=== PATIENT | female | born 1930 | race Caucasian/White ===

== ENCOUNTER 2016-06-29 03:43 | Emergency (ER) | payer MEDICARE ==
--- NOTE | 2016-06-29 03:54 | Emergency Department Record ---
History of Present Illness - General Stated complaint: FALL Time Seen by Provider: 06/29/16 03:48 Source: EMS Mode of Arrival: Stretcher Limitations: Altered mental status (dementia) Travel/Exposure to [place] Within 21 Days of Symptoms: No - History of Present Illness Initial comments: 85 yo female presents to ED following a reported fall per EMS. Patient has a history of severe dementia, does not remember any fall or injury. History is limited by patient's dementia. MD Complaint: Head injury Onset/Timin -: Hour(s) Arrival Conditions: Other (patient refused cervical collar) Mechanism of Injury: Mechanical fall Loss of Consciousness: Yes Previous Trauma to this Area: Yes Place: Home Radiation: None Other Injuries: None - Related Data Previous Rx's Medication Instructions Recorded Na Phos,M-B/Na Phos,Di-Ba [Fleet 266 ml RC Q8H PRN #3 enema 06/29/16 Enema] Polyethylene Glycol 3350 [Miralax] 1 packet PO DAILY #30 packet 06/29/16 Review of Systems ROS unobtainable: Due to mental status Physical Exam - General General Appearance: Alert, Cooperative, No acute distress, Other (patient reports that she does not remember a fall this morning, denies injury or pain) Limitations: Altered mental status - Head Head exam: Atraumatic, Normocephalic, Normal inspection Head exam detail: negative: Abrasion, Contusion, Skelton's sign, General tenderness, Hematoma, Laceration - Eye Eye exam: Normal appearance. negative: Conjunctival injection, Periorbital swelling, Periorbital tenderness, Scleral icterus - ENT Ear exam: negative: Auricular hematoma, Auricular trauma Nasal Exam: negative: Active bleeding, Discharge, Dried blood, Foreign body Mouth exam: negative: Drooling, Laceration, Muffled voice, Tongue elevation - Neck Neck exam: Normal inspection. negative: Meningismus, Tenderness - Respiratory Respiratory exam: Normal lung sounds bilaterally. negative: Rhonchi, Stridor, Wheezes - Cardiovascular Cardiovascular Exam: Regular rate, Normal rhythm, Normal heart sounds - GI/Abdominal GI/Abdominal exam: Soft. negative: Organomegaly, Pulsatile mass, Rebound, Rigid - Rectal Rectal exam: Deferred - exam: Deferred - Extremities Extremities exam: Normal inspection. negative: Calf tenderness, Pedal edema, Tenderness - Back Back exam: Denies: CVA tenderness (R), CVA tenderness (L) - Neurological Neurological exam: Alert, Normal gait, Oriented X3 - Psychiatric Psychiatric exam: Normal affect, Normal mood - Skin Skin exam: Normal color. negative: Abrasion Type of lesion: negative: abrasion Course - Reevaluation(s) Reevaluation #1: 06/29/16 04:27 CT Brain: Atrophy, small vessel ischemic change, nothing acute. Patient and her daughter were updated on CT imaging results, patient reports that she is feeling nauseated. Zofran ordered, will continue to monitor. Reevaluation #2: 06/29/16 05:39 Patient attempted to have BM while in the ED, resulted in vaso-vagal response. Daughter at the bedside reports simialr symptoms previously when attempting to have a BM. Patient is currently sleeping, BP now back to 118/50, pulse 50's. Will discharge home with Fleet's enema and Miralax for her constipation symptoms. Patient appears stable for discharge home with her daughter at this time. Disposition Disposition: Discharge Clinical Impression: Fall from standing Qualifiers: Encounter type: initial encounter Qualified Code(s): W19.XXXA - Unspecified fall, initial encounter Disposition: Home, Self-Care Condition: (2) Stable Instructions: Minor Head Injury (ED) Additional Instructions: Return to ED if your symptoms worsen or if you have any concerns. Fleet's enema and Miralax as directed. Follow-up with your family doctor in 3-5 days as directed. Prescriptions: Na Phos,M-B/Na Phos,Di-Ba [Fleet Enema] 266 ml RC Q8H PRN #3 enema PRN Reason: Constipation Polyethylene Glycol 3350 [Miralax] 1 packet PO DAILY #30 packet Time of Disposition: 05:41
[2016-06-29] MEDS ORDERED: ONDANSETRON 4 MG ODT TABLET SL ONE (04:23)
== END 2016-06-29 06:01 | disposition home or self-care (01) ==
LOC: ER 03:43
DX: G89.11 Acute pain due to trauma (principal); R51 Headache; R11.0 Nausea; R55 Syncope and collapse; K59.00 Constipation, unspecified; F03.90 Unspecified dementia, unspecified severity, without behavioral disturbance, psychotic disturbance, mood disturbance, and anxiety; I48.91 Unspecified atrial fibrillation; W06.XXXA Fall from bed, initial encounter; Y92.122 Bedroom in nursing home as the place of occurrence of the external cause
CPT/HCPCS: 70450; 99283; 99284

== ENCOUNTER 2016-06-30 07:37 | Emergency (ER) | payer MEDICARE ==
[2016-06-30] MEDS ORDERED: 0.9 % SODIUM CHLORIDE 1,000 ML BAG IV ONE (07:58)
[2016-06-30] MEDS ORDERED: ONDANSETRON HCL IV 4 MG/2 ML VIAL IV ONE (07:58)
--- NOTE | 2016-06-30 08:01 | Emergency Department Record ---
History of Present Illness - General Chief Complaint: Abdominal Pain Stated Complaint: ABD PAIN Time Seen by Provider: 06/30/16 07:51 Source: Family Mode of Arrival: EMS Limitations: No limitations - History of Present Illness Initial Comments: The patient is here due to having abdominal pain this AM. She lives at [facility] and according to the patient's daughter she was called at 7am due to the patient being constipated and having AP. She did have some vomiting prior to presenting to the ER. The patient has a hx of significant dementia so the hx is obtained from her daughter. She was in the ER yesterday in the features reporter hours due to falling and bumping her head. She did have a neg head CT then. The patient is not on any blood thinners and presently is acting normally per her daughter. There has been no reported fever, diarrhea, dysuria, back pain or new confusion. She has had her gallbladder out in the past and that is her only abdominal surgery. The patient did have a BM yesterday. MD Complaint: Abdominal pain Onset/Timin -: Days(s) Radiation: None Migration to: No migration Improves With: Nothing Worsens With: Nothing Associated Symptoms: Denies other symptoms - Related Data Patient : No Home Medications Medication Instructions Recorded Confirmed Last Taken Digoxin [Digox] 125 mcg PO DAILY 06/30/16 06/30/16 Unknown Lorazepam [Lorazepam] 0.5 mg PO QID 06/30/16 06/30/16 Unknown Memantine HCl [Namenda Xr] 28 mg PO DAILY 06/30/16 06/30/16 Unknown Metoprolol Tartrate [Metoprolol 25 mg PO DAILY 06/30/16 06/30/16 Unknown Tartrate] Naftifine HCl [Naftin] 45 gm TOP DAILY 06/30/16 06/30/16 Unknown Rivastigmine [Exelon] 1 patch TOP DAILY 06/30/16 06/30/16 Unknown Tramadol HCl [Tramadol HCl] 25 mg PO TID 06/30/16 06/30/16 Unknown Previous Rx's Medication Instructions Recorded Polyethylene Glycol 3350 [Miralax] 1 packet PO DAILY #30 packet 06/29/16 Allergies Allergy/AdvReac Type Severity Reaction Status Date / Time No Known Drug Allergies Allergy Verified 06/30/16 07:51 Travel Screening - Travel/Exposure Within Last 30 Days Have you traveled within the last 30 days?: No Review of Systems Constitutional: Denies: Chills, Fever, Malaise ENT: Denies: Congestion Respiratory: Denies: Cough, Dyspnea Cardiovascular: Denies: Arrhythmia, Chest pain Endocrine: Reports: Fatigue Gastrointestinal: Reports: Abdominal pain, Nausea, Vomiting Genitourinary: Denies: Dysuria Musculoskeletal: Denies: Back pain Skin: Denies: Bruising Past Medical History - SOCIAL HISTORY Smoking Status: Never smoker - RESPIRATORY Hx Respiratory Disorders: No - CARDIOVASCULAR Hx Cardio Disorders: Yes Hx Irregular Heartbeat: Yes (afib) - NEURO Hx Neuro Disorders: Yes Hx Dementia: Yes - GI Hx GI Disorders: No - Hx Genitourinary Disorders: No - ENDOCRINE Hx Endocrine Disorders: No - MUSCULOSKELETAL Hx Musculoskeletal Disorders: No - PSYCH Hx Psych Problems: No - HEMATOLOGY/ONCOLOGY Hx Hematology/Oncology Disorders: No Family Medical History Any Significant Family History?: No Physical Exam - General General Appearance: Alert, Cooperative, No acute distress - Head Head exam: Atraumatic, Normocephalic, Normal inspection - Eye Eye exam: Normal appearance, PERRL - Neck Neck exam: Normal inspection, Full ROM. negative: Tenderness - Respiratory Respiratory exam: Normal lung sounds bilaterally. negative: Respiratory distress - Cardiovascular Cardiovascular Exam: Irregular rhythm. negative: Regular rate, Normal rhythm - GI/Abdominal GI/Abdominal exam: Soft, Normal bowel sounds. negative: Guarding, Rebound, Rigid, Tenderness - Extremities Extremities exam: Normal inspection, Full ROM, Normal capillary refill. negative: Tenderness - Neurological Neurological exam: Alert. negative: Motor sensory deficit, Oriented X3 - Psychiatric Psychiatric exam: negative: Agitated - Skin Skin exam: negative: Rash Course Vital Signs 06/30/16 07:43 Temperature 97.3 F L Pulse Rate 79 Respiratory 20 Rate Blood Pressure 130/65 Pulse Ox 98 - Reevaluation(s) Reevaluation #1: The patient is doing well. She did drink the CT contrast with no difficulty or problems. Presently there is no reported AP, nausea, or vomiting and on exam her abdomen is very soft and nontender. I did discuss the lab and CT results with the patient's daughter and did discuss the need to return for any worsening symptoms. 06/30/16 11:27 Medical Decision Making - Data Complexity MDM Data: Labs Ordered and/or Reviewed, X-Ray Ordered and/or Reviewed, EKG Ordered and/or Reviewed (Afib in the 80's. LAD. No ischemic changes.) - Lab Data Result diagrams: 06/30/16 08:10 06/30/16 08:10 - Radiology Data Radiology results: Report reviewed (Abd CT: No acute changes, R colon possibly with wall thickening but most likely due to incomplete distension.) Disposition Disposition: Discharge Clinical Impression: Abdominal pain in female Disposition: Home, Self-Care Condition: (1) Good Instructions: Abdominal Pain (ED) Additional Instructions: Please continue your regular medicines. [facility] later this week for recheck. Please continue the Miralax daily as directed. Return to the ER for any increased pain, fever, or vomiting. Forms: Patient Portal Access Time of Disposition: 11:26
[2016-06-30 08:34] LABS: BASO % 0.5 % (0-6); EOS % 0.8 % (0-6); GRAN % 72.6 % (47-80); HEMATOCRIT 41.7 % (35.0-47.0); HEMOGLOBIN 13.5 gm/dl (11.6-16.0); LYMPH % 19.7 % (16-45); MEAN CELL VOLUME 96.3 fl (81-97); MEAN CORPUSCULAR HEMOGLOBIN 31.2 pg (27-33); MEAN CORPUSCULAR HGB CONC 32.4 g/dl (32-36); MEAN PLATELET VOLUME 11.4 fl (7.4-10.4); MONO % 6.4 % (0-9); PLATELET COUNT 189 K/uL (130-400); RED BLOOD COUNT 4.33 M/uL (3.80-5.40); RED CELL DISTRIBUTION WIDTH 13.5 % (11.5-14.5); WHITE BLOOD COUNT W/O DIFF 5.9 K/uL (4.2-12.2)
[2016-06-30 08:54] LABS: CREATINE PHOSPHOKINASE 51 U/L (30-135)
[2016-06-30 08:55] LABS: ALBUMIN 4.2 gm/dL (3.5-5.0); ALKALINE PHOSPHATASE 64 U/L (38-126); ALT/SGPT 36 U/L (9-52); ANION GAP 9.7 (7-16); AST/SGOT 40 U/L (14-36); BLOOD UREA NITROGEN 10 mg/dL (7-17); CARBON DIOXIDE 27.3 mmol/L (22-30); CREATININE 0.9 mg/dL (0.52-1.04); EST GLOMERULAR FILTRATION RATE > 60 ml/min; GLUCOSE,RANDOM 127 mg/dL (70-110); TOTAL PROTEIN 7.5 gm/dL (6.3-8.2)
[2016-06-30 09:06] LABS: URINE APPEARANCE CLEAR; URINE BILIRUBIN NEGATIVE (NEGATIVE); URINE BLOOD TRACE-I (NEGATIVE); URINE COLOR YELLOW; URINE GLUCOSE (UA) NEGATIVE (NEGATIVE); URINE KETONE NEGATIVE (NEGATIVE); URINE LEUKOCYTE ESTERASE NEGATIVE (NEGATIVE); URINE NITRITE NEGATIVE (NEGATIVE); URINE UROBILINOGEN 0.2 E.U./dL (0.20 - 1.00)
[2016-06-30 09:07] LABS: CKMB 0.5 ug/L (0-6)
[2016-06-30 09:08] LABS: TROPONIN I < 0.012 ng/mL (0.00-0.034)
[2016-06-30] MEDS ORDERED: LORAZEPAM 2 MG/ML VIAL IV ONE (09:12)
[2016-06-30 09:21] LABS: URINE BACTERIA NONE SEEN; URINE EPITHELIAL CELLS 0 - 2 (FEW); URINE WBC 0 - 2 (0-2/hpf)
== END 2016-06-30 11:50 | disposition home or self-care (01) ==
LOC: ER 07:37
DX: R10.9 Unspecified abdominal pain (principal); R11.2 Nausea with vomiting, unspecified; F03.90 Unspecified dementia, unspecified severity, without behavioral disturbance, psychotic disturbance, mood disturbance, and anxiety; I48.91 Unspecified atrial fibrillation
CPT/HCPCS: 74177; 80048; 80076; 80162; 81001; 82550; 82553; 83690; 84484; 85025; 93005; 93010; 96361; 96374; 96375; 99284; J2405; J7030

== ENCOUNTER 2016-08-02 11:35 | Emergency (ER) | payer MEDICARE ==
--- NOTE | 2016-08-02 11:51 | Emergency Department Record ---
History of Present Illness - General Chief Complaint: Hypotension Stated Complaint: HYPOTENSTION Source: Family Mode of Arrival: EMS Limitations: No limitations - History of Present Illness Initial Comments: The patient is here from [place] due to having an episode of hypotension while having a BM. EMS was called unfortunately against the wishes of the patient's daughter who is DPOA. Now the patient is back to normal and the daughter is refusing treatment. She states this happens frequently and the patient is a DNR with Dementia and she would just like to take her back to the home. MD Complaint: Lightheadedness Onset/Timin -: Hour(s) History of Same: Yes Improves With: Remaining still, Rest Worsens With: Position, Exertion Associated Symptoms: Denies other symptoms - Related Data Home Medications Medication Instructions Recorded Confirmed Last Taken Digoxin [Digox] 125 mcg PO DAILY 06/30/16 08/02/16 08/02/16 Lorazepam [Lorazepam] 0.5 mg PO QID 06/30/16 08/02/16 08/02/16 Memantine HCl [Namenda Xr] 28 mg PO DAILY 06/30/16 08/02/16 08/02/16 Metoprolol Tartrate [Metoprolol 25 mg PO DAILY 06/30/16 08/02/16 08/02/16 Tartrate] Naftifine HCl [Naftin] 45 gm TOP DAILY 06/30/16 08/02/16 08/02/16 Rivastigmine [Exelon] 1 patch TOP DAILY 06/30/16 08/02/16 08/02/16 Tramadol HCl [Tramadol HCl] 25 mg PO TID 06/30/16 08/02/16 08/02/16 Melatonin 3 mg PO QHS 08/02/16 08/02/16 08/01/16 Previous Rx's Medication Instructions Recorded Polyethylene Glycol 3350 [Miralax] 1 packet PO DAILY #30 packet 06/29/16 Allergies Allergy/AdvReac Type Severity Reaction Status Date / Time No Known Drug Allergies Allergy Verified 08/02/16 11:39 Travel Screening - Travel/Exposure Within Last 30 Days Have you traveled within the last 30 days?: No - Travel/Exposure Within Last Year Have you traveled outside the [place] in the last year?: No - Additonal Travel Details Have you been exposed to anyone with a communicable illness?: No - Travel Symptoms Symptom Screening: None Past Medical History - SOCIAL HISTORY Smoking Status: Never smoker Alcohol Use: None Drug Use: None - RESPIRATORY Hx Respiratory Disorders: No - CARDIOVASCULAR Hx Cardio Disorders: Yes Hx Irregular Heartbeat: Yes (afib) - NEURO Hx Neuro Disorders: Yes Hx Dementia: Yes - GI Hx GI Disorders: No - Hx Genitourinary Disorders: No - ENDOCRINE Hx Endocrine Disorders: No - MUSCULOSKELETAL Hx Musculoskeletal Disorders: No - PSYCH Hx Psych Problems: No - HEMATOLOGY/ONCOLOGY Hx Hematology/Oncology Disorders: No Family Medical History Any Significant Family History?: No Physical Exam - General General Appearance: Alert, Cooperative, No acute distress - Head Head exam: Atraumatic, Normocephalic - Eye Eye exam: Normal appearance - Neck Neck exam: Normal inspection, Full ROM. negative: Tenderness - Respiratory Respiratory exam: Normal lung sounds bilaterally. negative: Respiratory distress - Cardiovascular Cardiovascular Exam: Regular rate, Normal rhythm, Normal heart sounds Course Vital Signs 08/02/16 11:41 Temperature 97.6 F Pulse Rate 75 Respiratory 20 Rate Blood Pressure 100/64 Pulse Ox 97 - Reevaluation(s) Reevaluation #1: I did have a long conversation with Slime who is the patient's DPOA and medical decision maker. The daughter again is refusing evaluation and the patient's MSE. I did explain to the patient and daughter we have not done a full PE and any lab work, EKG, or xrays and have not fully evaluated this issue. The patient and daughter can refuse treatment and they both understand that we cannot be held liable for NOT evaluating the patient because they are refusing treatment. I explained to the patient that we can evaluate her at any time in the future if they change their minds. 08/02/16 12:03 08/02/16 14:33 Disposition Disposition: Discharge Clinical Impression: Hypotension Qualifiers: Hypotension type: other hypotension type Qualified Code(s): I95.89 - Other hypotension Disposition: Home, Self-Care Condition: (1) Good Instructions: Hypotension (ED) Additional Instructions: Please continue your regular medicines. Please return to the ER for any problems or if you change your mind about being evaluated. Forms: Patient Portal Access Time of Disposition: 12:02
== END 2016-08-02 12:15 | disposition home or self-care (01) ==
LOC: ER 11:35
DX: I95.89 Other hypotension (principal); R42 Dizziness and giddiness
CPT/HCPCS: 99282